=== PATIENT | male | born 2000 | race Caucasian/White ===

== ENCOUNTER 2021-08-10 11:53 | Emergency (ER) | payer OTHER ==
[~2021-08-10] VITALS: Ht 177.8 cm; Wt 63.5 kg
--- NOTE | 2021-08-10 12:35 | ED Abdominal Pain ---
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 PT REPORTS HE WAS EATING BREAKFAST AND HIS ABD STARTED HURTING. PT REPORTS HE DID NOT TAKE ANYTHING FOR THE PAIN OR CONTACT HIS PCP AND CAME STRAIT TO THE EMERGENCY DEPARTMENT. Source of Information: Patient Exam Limitations: No Limitations (VIRA AGRAWAL APRN) History of Present Illness Date Seen by Provider: Aug 10, 2021 Time Seen by Provider: 12:33 Initial Comments To ER with sudden onset left lower quadrant abdominal pain that did radiate to the testicles. This began about 45 minutes prior to arrival. Has not yet taken any medications for this. No history of this. No dysuria. No bowel changes. The pain is improving but is not gone. Currently rated at 5 out of 10. Worsened by movement. He has no testicular pain anymore. Only the abdominal pain persists Timing/Duration: 1 Hour Severity/Quality: Moderate Location: LLQ Radiation: No Radiation Activities at Onset: None Associated Symptoms: No Fever/Chills, No Nausea/Vomiting (VIRA AGRAWAL APRN) Allergies and Home Medications Allergies Coded Allergies: gluten (Verified Allergy, Unknown, 08/11/21) tree nut (Verified Allergy, Unknown, 08/11/21) Patient Home Medication List Home Medication List Reviewed: Yes (VIRA AGRAWAL APRN) Hydrocodone/Acetaminophen (Hydrocodone-Acetamin 5-325 mg) 1 Each Tablet, 1 TAB PO Q4H PRN for PAIN-MODERATE (5-7) Prescribed by: VIRA AGRAWAL on 08/10/21 1415 Ondansetron (Ondansetron Odt) 8 Mg Tab.rapdis, 8 MG PO Q4H PRN for NAUSEA/VOMITING Prescribed by: RO HAYDEN on 08/11/21 0302 Tamsulosin HCl (Flomax) 0.4 Mg Cap, 0.4 MG PO DAILY Prescribed by: RO HAYDEN on 08/11/21 0302 Review of Systems Review of Systems Constitutional: see HPI EENTM: No Symptoms Reported Respiratory: No Symptoms Reported Cardiovascular: No Symptoms Reported Gastrointestinal: See HPI, Abdominal Pain Genitourinary: No Symptoms Reported Musculoskeletal: no symptoms reported Skin: no symptoms reported Psychiatric/Neurological: No Symptoms Reported Endocrine: No Symptoms Reported Hematologic/Lymphatic: No Symptoms Reported (VIRA AGRAWAL APRN) Past Nwnseky-Nyhjgx-Fwvmjr Hx Patient Social History Tobacco Use?: No Smoking Status: Never a Smoker Smokeless Tobacco Frequency: Never a User Use of E-Cig and/or Vaping dev: No Use of E-Cig and/or Vaping Norm: Never a User Substance use?: No Alcohol Use?: No Pt feels they are or have been: No (VIRA AGRAWAL APRN) Immunizations Up To Date First/Initial COVID19 Vaccinat: 12/2020 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 oz. kg; 20.00 BMI Method: General Appearance: WD/WN, no apparent distress Neck: non-tender, full range of motion Respiratory: no respiratory distress Cardiovascular: regular rate, rhythm, no murmur Gastrointestinal: normal bowel sounds, soft, tenderness (Minimal left lower quadrant tenderness. No inguinal bulge or tenderness to palpation) Extremities: normal range of motion, non-tender Neurologic/Psychiatric: alert, normal mood/affect, oriented x 3 Skin: normal color, warm/dry (VIRA AGRAWAL APRN) Progress/Results/Core Measures Results/Orders Lab Results Laboratory Tests Test 08/10/21 12:11 08/10/21 12:35 Range/Units White Blood Count 5.0 4.3-11.0 10^3/uL Red Blood Count 4.86 4.30-5.52 10^6/uL Hemoglobin 14.9 13.3-17.7 g/dL Hematocrit 42 40-54 % Mean Corpuscular Volume 87 80-99 fL Mean Corpuscular Hemoglobin 31 25-34 pg Mean Corpuscular Hemoglobin Concent 35 32-36 g/dL Red Cell Distribution Width 11.5 10.0-14.5 % Platelet Count 192 130-400 10^3/uL Mean Platelet Volume 12.1 9.0-12.2 fL Immature Granulocyte % (Auto) 0 % Neutrophils (%) (Auto) 49 42-75 % Lymphocytes (%) (Auto) 40 12-44 % Monocytes (%) (Auto) 7 0-12 % Eosinophils (%) (Auto) 4 0-10 % Basophils (%) (Auto) 1 0-10 % Neutrophils # (Auto) 2.4 1.8-7.8 10^3/uL Lymphocytes # (Auto) 2.0 1.0-4.0 10^3/uL Monocytes # (Auto) 0.3 0.0-1.0 10^3/uL Eosinophils # (Auto) 0.2 0.0-0.3 10^3/uL Basophils # (Auto) 0.0 0.0-0.1 10^3/uL Immature Granulocyte # (Auto) 0.0 0.0-0.1 10^3/uL Sodium Level 142 135-145 MMOL/L Potassium Level 3.6 3.6-5.0 MMOL/L Chloride Level 108 H 98-107 MMOL/L Carbon Dioxide Level 23 21-32 MMOL/L Anion Gap 11 5-14 MMOL/L Blood Urea Nitrogen 4 L 7-18 MG/DL Creatinine 0.83 0.60-1.30 MG/DL Estimat Glomerular Filtration Rate 119 BUN/Creatinine Ratio 5 Glucose Level 130 H 70-105 MG/DL Calcium Level 8.9 8.5-10.1 MG/DL Corrected Calcium 8.6 8.5-10.1 MG/DL Total Bilirubin 0.9 0.1-1.0 MG/DL Aspartate Amino Transf (AST/SGOT) 328 H 5-34 U/L Alanine Aminotransferase (ALT/SGPT) 107 H 0-55 U/L Alkaline Phosphatase 56 40-136 U/L C-Reactive Protein High Sensitivity 0.06 0.00-0.50 MG/DL Total Protein 6.5 6.4-8.2 GM/DL Albumin 4.4 3.2-4.5 GM/DL Serum Alcohol < 10 <10 MG/DL Urine Color YELLOW Urine Clarity CLEAR Urine pH 6.5 5-9 Urine Specific [place] 1.025 H 1.016-1.022 Urine Protein NEGATIVE NEGATIVE Urine Glucose (UA) NEGATIVE NEGATIVE Urine Ketones NEGATIVE NEGATIVE Urine Nitrite NEGATIVE NEGATIVE Urine Bilirubin NEGATIVE NEGATIVE Urine Urobilinogen 1.0 < = 1.0 MG/DL Urine Leukocyte Esterase NEGATIVE NEGATIVE Urine RBC (Auto) 3+ H NEGATIVE Urine RBC 50-100 H /HPF Urine WBC NONE /HPF Urine Squamous Epithelial Cells NONE /HPF Urine Crystals NONE /LPF Urine Bacteria NEGATIVE /HPF Urine Casts NONE /LPF Urine Mucus SMALL H /LPF Urine Culture Indicated NO (JACOBY BRUCE MD) Vital Signs/I&O 08/10/21 08/10/21 12:01 14:21 Temp 35.8 Pulse 49 61 Resp 18 16 B/P (MAP) 132/72 (92) 127/68 Pulse Ox 100 O2 Delivery Room Air Room Air (JACOBY BRUCE MD) Blood Pressure Mean: 92 Departure Communication (Admissions) Family Conversation NAME: JOHNSON NORRIS [facility] REC#: [id number] PT STATUS: REG ER : 2001 PHYSICIAN: VIRA AGRAWAL APRN ADMIT DATE: 08/10/21/ER Draft Date of Exam:08/10/21 CT ABD/PELVIS WO(KIDNEY STONE) PROCEDURE: CT urinary tract, rule out kidney stone. TECHNIQUE: Multiple contiguous axial images were obtained through the abdomen and pelvis without the use of intravenous contrast. Auto Exposure Controls were utilized during the CT exam to meet ALARA standards for radiation dose reduction. INDICATION: Left lower quadrant pain for 12 hours with hematuria. FINDINGS: Kidneys are symmetrical and appear normal without hydronephrosis or calculi. The ureters are not distended. No calculi are seen within the ureters. The bladder is empty. There is no free air or free fluid. The liver, gallbladder and bile duct are normal. Pancreas and spleen are normal. Adrenal glands are not enlarged. Bowel gas pattern is normal. No bony abnormalities are demonstrated. IMPRESSION: No evidence of renal or ureteral calculi. No hydronephrosis. Dictated on workstation # [id number] Dict: 08/10/21 1321 Trans: 08/10/21 1325 [facility] [id number] Interpreted by: PADMA HEMPHILL MD Electronically signed by: [id number] did discuss with him the elevated liver function test. He states that he does not drink alcohol but he has not been drinking much water lately and has been drinking a lot of tea. He has a primary care provider in [place] and states that he will follow up with them in regards to this. I also discussed with him that he could follow-up with [facility] in regards to getting a recheck of liver enzymes. He is over to CT now given the hematuria and left lower quadrant pain. He now states that the left lower abdominal pain is gone but he has some pain in the tip of his penis. [id number] did not demonstrate a stone in the ureter or bladder. He does have hematuria sudden onset of left lower abdominal pain. Presentation is consistent with ureteral stone. He states that his abdominal pain is gone and now he has some burning sensation in his penis, I would suspect that the stone is actually in the urethra at this time though he may have already passed it. (VIRA AGRAWAL APRN) Impression Primary Impression: Left ureteral stone Disposition: 01 HOME, SELF-CARE Condition: Stable Departure-Patient Inst. Decision time for Depature: 13:06 (VIRA AGRAWAL APRN) Referrals: NO,LOCAL PHYSICIAN (PCP/Family) Primary Care Physician Patient Instructions: No Instuctions Given Add. Discharge Instructions: . Your liver enzymes (AST/ALT) are little high. This warrants follow-up within a week or 2. This can be done either at [facility] or at your primary care provider's office. All discharge instructions reviewed with patient and/or family. Voiced understanding. Scripts Hydrocodone/Acetaminophen (Hydrocodone-Acetamin 5-325 mg) 1 Each Tablet 1 TAB PO Q4H PRN for PAIN-MODERATE (5-7), #10 TAB Prov: VIRA AGRAWAL APRN 08/10/21 ATTENDING PHYSICIAN NOTE: I was physically present as attending physician in the emergency department during the care of this patient, but I was not directly involved in the decision making or delivery of care for this patient. (JACOBY BRUCE MD) VIRA AGRAWAL APRN Aug 10, 2021 12:35 JACOBY BRUCE MD Aug 13, 2021 06:57
[2021-08-10 12:41] LABS: BASOPHILS % (AUTO) 1 % (0-10); EOSINOPHILS # (AUTO) 0.2 10^3/uL (0.0-0.3); EOSINOPHILS % (AUTO) 4 % (0-10); HEMATOCRIT 42 % (40-54); HEMOGLOBIN 14.9 g/dL (13.3-17.7); LYMPHOCYTES % (AUTO) 40 % (12-44); MEAN CORPUSCULAR HEMOGLOBIN 31 pg (25-34); MEAN CORPUSCULAR HGB CONC 35 g/dL (32-36); MEAN CORPUSCULAR VOLUME 87 fL (80-99); MEAN PLATELET VOLUME 12.1 fL (9.0-12.2); MONOCYTES # (AUTO) 0.3 10^3/uL (0.0-1.0); MONOCYTES % (AUTO) 7 % (0-12); NEUTROPHILS # (AUTO) 2.4 10^3/uL (1.8-7.8); NEUTROPHILS % (AUTO) 49 % (42-75); PLATELET COUNT 192 10^3/uL (130-400)
[2021-08-10 12:42] LABS: BILIRUBIN,URINE NEGATIVE (NEGATIVE); CLARITY,URINE CLEAR; COLOR,URINE YELLOW; GLUCOSE, URINE (UA) NEGATIVE (NEGATIVE); KETONES,URINE NEGATIVE (NEGATIVE); LEUKOCYTE ESTERASE ,URINE NEGATIVE (NEGATIVE); NITRITE,URINE NEGATIVE (NEGATIVE); PH,URINE 6.5 (5-9); PROTEIN,URINE NEGATIVE (NEGATIVE)
[2021-08-10 12:44] LABS: ALBUMIN 4.4 GM/DL (3.2-4.5); POTASSIUM 3.6 MMOL/L (3.6-5.0)
[2021-08-10 12:45] LABS: CALCIUM 8.9 MG/DL (8.5-10.1)
[2021-08-10] MEDS ORDERED: KETOROLAC 30 MG/ML VIAL IVP ONE (12:45)
[2021-08-10 12:47] LABS: TOTAL PROTEIN 6.5 GM/DL (6.4-8.2)
[2021-08-10 12:49] LABS: BILIRUBIN,TOTAL 0.9 MG/DL (0.1-1.0)
[2021-08-10 12:50] LABS: CREATININE SERUM 0.83 MG/DL (0.60-1.30)
[2021-08-10 12:55] LABS: BACTERIA,URINE NEGATIVE /HPF; RBC,URINE 50-100 /HPF
--- NOTE | 2021-08-10 13:25 | Diagnostic Imaging Report ---
PROCEDURE: CT urinary tract, rule out kidney stone. TECHNIQUE: Multiple contiguous axial images were obtained through the abdomen and pelvis without the use of intravenous contrast. Auto Exposure Controls were utilized during the CT exam to meet ALARA standards for radiation dose reduction. INDICATION: Left lower quadrant pain for 12 hours with hematuria. FINDINGS: Kidneys are symmetrical and appear normal without hydronephrosis or calculi. The ureters are not distended. No calculi are seen within the ureters. The bladder is empty. There is no free air or free fluid. The liver, gallbladder and bile duct are normal. Pancreas and spleen are normal. Adrenal glands are not enlarged. Bowel gas pattern is normal. No bony abnormalities are demonstrated. IMPRESSION: No evidence of renal or ureteral calculi. No hydronephrosis. Dictated by: Dictated on workstation # [id number]
[2021-08-10] MEDS ORDERED: ACHD5005 PO (14:14)
[2021-08-10 14:21] VITALS: BP 127/68
[2021-08-11] MEDS ORDERED: ONDA8TAB13 PO (03:02)
[2021-08-11] MEDS ORDERED: TMSL.4C PO (03:02)
== END 2021-08-10 14:21 | disposition home or self-care (01) ==
LOC: ER 11:55
DX: N20.1 Calculus of ureter (principal)
CPT/HCPCS: 74176; 80053; 81000; 85025; 86141; 99284; G0480; 36415; 80320

== ENCOUNTER 2021-08-11 01:42 | Emergency (ER) | payer OTHER ==
[~2021-08-11] VITALS: Ht 177.8 cm; Wt 63.5 kg
[~2021-08-11 01:42] MED LIST: ACHD5005 PO
[2021-08-11 01:50] VITALS: BP 130/77
[2021-08-11] MEDS ORDERED: KETOROLAC 30 MG/ML VIAL IVP STA (02:00)
[2021-08-11] MEDS ORDERED: ONDANSETRON 4 MG/2 ML (SDV) Z0FRAN IVP ONE (02:00)
[2021-08-11] MEDS ORDERED: LACTATED RINGERS 1,000 ML IV ONE (02:00)
--- NOTE | 2021-08-11 02:13 | ED GU-Male ---
General Chief Complaint: Abdominal/GI Problems Stated Complaint: LEFT SIDE PAIN Nursing Triage Note: Pt arrives via POV from home with c/o left ABD/flank pain. Pt seen in ED this AM, dx with kidney stone et dx with prescriptions for Farina. Pt reports taking four ibuprofen et Farina around 2330; states after that he became nausea et vomited. Pt also reports pain has worsened. Source: patient, old records History of Present Illness Date Seen by Provider: Aug 11, 2021 Time Seen by Provider: 02:00 Initial Comments PT ARRIVES VIA POV FROM HOME/[employer] STUDENT PT C/O LEFT FLANK PAIN RADIATING TO LEFT MID ABDOMEN SINCE AROUND 1140 AM ON 07/11/21 SEEN HERE IN ER AND DX WITH KIDNEY STONE HAS NOT TAKEN ANYTHING FOR PAIN SINCE BEING DISMISSED, UNTIL 2300 TONIGHT--TOOK 4 IBUPROFEN AND 30 MINUTES LATER TOOK HYDROCODONE ( BOTH ON EMPTY STOMACH ) AND THEN VOMITED--THEN DRANK WATER, VOMITED AGAIN AND THEN DRANK WATER AGAIN AND VOMITED AGAIN C/O SEVERE PAIN IN LEFT FLANK AND LEFT MID ABDOMEN NO FEVER HAS URINARY URGENCY AND HAS ONLY VOIDED SMALL AMOUNTS A COUPLE OF TIMES SINCE DISMISSED FROM ER NO PRIOR HISTORY OF KIDNEY STONES PT IS [employer] STUDENT FROM [employer]. SUPPOSED TO BE GOING HOME FOR VANDANA BREAK ON Friday08/14/21 Allergies and Home Medications Allergies Coded Allergies: gluten (Verified Allergy, Unknown, 08/11/21) tree nut (Verified Allergy, Unknown, 08/11/21) Patient Home Medication List Home Medication List Reviewed: Yes Hydrocodone/Acetaminophen (Hydrocodone-Acetamin 5-325 mg) 1 Each Tablet, 1 TAB PO Q4H PRN for PAIN-MODERATE (5-7) Prescribed by: VIRA AGRAWAL on 08/10/21 1415 Ondansetron (Ondansetron Odt) 8 Mg Tab.rapdis, 8 MG PO Q4H PRN for NAUSEA/VOMITING Prescribed by: RO HAYDEN on 08/11/21 030 Tamsulosin HCl (Flomax) 0.4 Mg Cap, 0.4 MG PO DAILY Prescribed by: RO HAYDEN on 08/11/21 030 Review of Systems Review of Systems Constitutional: no symptoms reported Respiratory: no symptoms reported Cardiovascular: no symptoms reported Gastrointestinal: see HPI, abdominal pain, nausea, vomiting Genitourinary: see HPI Musculoskeletal: see HPI, back pain Skin: no symptoms reported Psychiatric/Neurological: No Symptoms Reported Endocrine: No Symptoms Reported Hematologic/Lymphatic: No Symptoms Reported Past Ttcfldx-Pztccg-Zrzvrg Hx Patient Social History Tobacco Use?: No Use of E-Cig and/or Vaping dev: No Substance use?: No Alcohol Use?: No Pt feels they are or have been: No Immunizations Up To Date Influenza Vaccine Up-to-Date: Yes; Up-to-Date First/Initial COVID19 Vaccinat: 12/2020 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 oz. kg; 20.00 BMI Method: General Appearance: WD/WN, thin, other (LOOKS UNCOMFORTABLE, HOLDING LEFT ABDOMEN AND THRASHING ON ER CART, MOANING) Respiratory: normal breath sounds, no respiratory distress, no accessory muscle use Gastrointestinal: soft, tenderness (LEFT FLANK AND LEFT MID ABDOMEN TENDERNESS) Back: CVA tenderness (L) Extremities: normal inspection Neurologic/Psychiatric: no motor/sensory deficits, alert, oriented x 3 Skin: normal color, warm/dry; No rash Progress/Results/Core Measures Suspected Sepsis SIRS Temperature: Pulse: 62 Respiratory Rate: 18 Blood Pressure 130 /77 Mean: 94 Results/Orders My Orders Orders - RO HAYDEN DO Ed Iv/Invasive Line Start (08/11/21 02:00) Ketorolac Injection (Toradol Injection) (08/11/21 02:00) Ondansetron Injection (Zofran Injectio (08/11/21 02:00) Ed Iv/Invasive Line Start (08/11/21 02:00) Lactated Ringers (Lr 1000 Ml Iv Solution (08/11/21 02:00) Rx-Ondansetron Po (Rx-Zofran Po) (08/11/21 02:58) Tamsulosin Capsule (Flomax Capsule) (08/11/21 03:00) Medications Given in ED Current Medications Medications Dose Ordered Sig/Radha Route Start Time Stop Time Status Last Admin Dose Admin Lactated Ringer's 1,000 ml @ 0 mls/hr Q0M ONCE IV 08/11/21 02:00 08/11/21 02:02 DC 08/11/21 02:21 1,000 MLS/HR Ondansetron HCl 8 mg ONCE ONCE IVP 08/11/21 02:00 08/11/21 02:02 DC 08/11/21 02:21 8 MG Vital Signs/I&O 08/11/21 01:50 Temp 36.6 Pulse 62 Resp 18 B/P (MAP) 130/77 (94) Pulse Ox 100 O2 Delivery Room Air Capillary Refill : Less Than 3 Seconds Blood Pressure Mean: 94 Progress Note : Progress Note GIVEN IV FLUIDS, TORADOL AND ZOFRAN WITH COMPLETE RESOLUTION OF PAIN AND NAUSEA Departure Impression Primary Impression: Left ureteral stone Disposition: HOME, SELF-CARE Condition: Improved Departure-Patient Inst. Decision time for Depature: 02:55 Referrals: NO,LOCAL PHYSICIAN (PCP/Family) Primary Care Physician Patient Instructions: Kidney Stone, Adult ED Add. Discharge Instructions: STRAIN ALL URINE--RETURN ANY STONES TO UROLOGIST OFFICE LOTS OF CLEAR LIQUIDS--WATER, BROTH, JELLO, GATORADE TAKE HYDROCODONE 1-2 PILLS EVERY 4 HOURS NEEDED FOR PAIN --TAKE SOON PAIN STARTS, AND TAKE WITH A SMALL AMOUNT OF FOOD SUCH CRACKERS OR DRY TOAST DO NOT DRIVE WHILE TAKING HYDROCODONE TAKE NAUSEA MEDICATION NEEDED FOLLOW UP WITH UROLOGIST NEAR YOUR HOME--CALL YOUR FAMILY DR AT HOME ON FRIDAY MORNING FOR REFERRAL TO UROLOGIST. All discharge instructions reviewed with patient and/or family. Voiced understanding. Scripts Tamsulosin HCl (Flomax) 0.4 Mg Cap 0.4 MG PO DAILY, #10 CAP Prov: RO HAYDEN DO 08/11/21 Ondansetron (Ondansetron Odt) 8 Mg Tab.rapdis 8 MG PO Q4H PRN for NAUSEA/VOMITING, #10 TAB Prov: RO HAYDEN DO 08/11/21 RO HAYDEN DO Aug 11, 2021 02:13
[2021-08-11] MEDS ORDERED: RX-ONDANSETRON 4 MG ODT (ZOFRAN) PPK #4 PO STA (02:58)
[2021-08-11] MEDS ORDERED: TAMSULOSIN 0.4 MG (FLOMAX) CAP PO SCH (03:00)
[2021-08-11] MEDS ORDERED: TMSL.4C PO (03:02)
[2021-08-11] MEDS ORDERED: ONDA8TAB13 PO (03:02)
== END 2021-08-11 03:24 | disposition home or self-care (01) ==
LOC: EDUNIT# 01:42 → ER 01:46
DX: N20.1 Calculus of ureter (principal)